=== PATIENT | male | born 1930 | race Caucasian/White ===

== ENCOUNTER 2020-01-23 16:49 | Inpatient (IN) | payer MEDICARE, OTHER ==
[~2020-01-23] VITALS: Ht 167.6 cm; Wt 71.3 kg
[~2020-01-23 16:49] MED LIST: AMLODIPINE10 MG PO; AMLODIPINE5 MG PO; ASPIRIN ADULT L81 MG PO; DONNATA1 OR; ECOTRIN LOW81 MG OR; ENALAPRIL10 MG OR; ENALAPRIL20 MG PO; GLIPIZIDE10 MG OR; METFORMIN500 M1 PO; METFORMIN500 MG OR; PROMETHAZINE25 MG PO; SIMVASTATIN20 MG PO; ZANTAC150 MG OR; ZANTAC25 MG PO
--- NOTE | 2020-01-23 16:50 | NUR ---
PT. WHEELED TO TREATMENT ROOM IMMEDIATELY ON ARRIVAL.
--- NOTE | 2020-01-23 17:16 | NUR ---
ADDED UROJET IN PENIS AND WILL ALLOW ABOUT 10 MIN BEFORE INITIATING GAFFNEY. BLADDER SCANNER SHOWED 551 ML OF FLUID IN BLADDER. PT STATES NOT URINATING FOR 7 HRS AND THE LAST URINATION WAS A VERY SMALL AMOUNT. LOWER ABD FEELS DISTENDED. PT STATES BEING UNCOMFORTABLE AND INTERM PAIN
[2020-01-23 17:41] LABS: URINE BILIRUBIN - DIPSTICK NEGATIVE (NEGATIVE); URINE BLOOD DIPSTICK LARGE (NEGATIVE); URINE COLOR BROWN; URINE GLUCOSE - DIPSTICK 100 mg/dL (NEGATIVE); URINE KETONE 15 mg/dL (NEGATIVE); URINE LEUK ESTERASE NEGATIVE (NEGATIVE); URINE PROTEIN - DIPSTICK 100 mg/dL (NEG-TRACE); URINE SPECIFIC GRAVITY 1.025; URINE UROBILINOGEN - DIPSTICK 0.2 E.U./dL (0.2)
[2020-01-23 17:45] LABS: URINE NITRITE - DIPSTICK POSITIVE (Negative)
[2020-01-23 17:47] LABS: URINE RBC TNTC RBC/hpf (0-5)
[2020-01-23 18:09] LABS: HEMATOCRIT 39.1 % (39.0-50.0); HEMOGLOBIN 13.6 g/dl (14.0-18.0); IMMATURE GRANULOCYTES 0.4 % (0.0-5.0); MEAN CELL VOLUME 93.1 fL CALC (80.0-100.0); MEAN CORPUSCULAR HGB 32.4 pG CALC (26.0-32.0); MEAN CORPUSCULAR HGB CONC 34.8 g/dL CAL (32.0-36.0); NEUT# 3.47 thou/uL (1.82-7.42); RED BLOOD COUNT 4.2 mill/uL (4.70-6.10); RED CELL DISTRI WIDTH 13.2 % (11.5-15.5)
[2020-01-23 18:24] LABS: ALBUMIN 4.4 g/dL (3.2-5.0); ALKALINE PHOSPHATASE 62 u/l (38-126); ANION GAP 15 (6-22 (CALC)); BILIRUBIN, TOTAL 0.7 mg/dL (0.0-1.4); BUN 15 mg/dL (8-23); BUN/CREATININE RATIO 14 (12-20 (CALC)); CARBON DIOXIDE 24 mmol/l (22-30); CHLORIDE 97 mmol/l (95-108); CREATININE 1.1 mg/dL (0.7-1.3); GFR > 60 ML/MIN (>=60 (CALC)); GFR FOR AFR.AMER. > 60 ML/MIN (>=60 (CALC)); POTASSIUM 3.6 mmol/l (3.5-5.1); SGOT/AST 21 u/l (19-48); SODIUM 132 mmol/l (137-146)
--- NOTE | 2020-01-23 18:51 | NUR ---
GAVE REPORT TO TERESE
--- NOTE | 2020-01-23 19:00 | NUR ---
IN ROOM INTRODUCED SELF TO PT. GAFFNEY CATH PATIENT AND DRAINING BLOODY URINE. NO C/O PAIN OR DISCOMFORT OFFERED.
--- NOTE | 2020-01-23 20:30 | NUR ---
IN ROOM TO DISCUSS CLINICAL FINDINGS WITH PT. AND FAMILY, VERBALIZED UNDERSTANDING.
--- NOTE | 2020-01-23 21:13 | NUR ---
IV ABT. STARTED PER MD ORDER.
--- NOTE | 2020-01-23 21:19 | NUR ---
PT. TAKEN TO [facility] VIA STRETCHER, NO C/O.
[2020-01-23 21:25] VITALS: BP 168/83
--- NOTE | 2020-01-23 21:32 | NUR ---
PT. ARRIVED TO THE FLOOR VIA STRETCHER ACCOMPANIED BY ER NURSE LIBBY GUDINO AND . ALL PMH OBTAINED FROM WHO IS THE POA, PT. HAS HX OF DEMENTIA. PT. IS REALLY [place]. PT. AND UPDATED WITH POC.PER ER NURSE THE ER PHYSICIAN NOTIFIED DR. BARRERA OF CONSULT ON PT. B/P ELEVATED BUT PT. IS SETTLING INTO BED WILL REASSESS. PER PT. HAS ALREADY TAKEN ALL HOME MEDICATIONS INCLUDING B/P MED TODAY AT HOME. [address] GAFFNEY CATHETER IN PLACE AND OUTPUT IS BLOODY, CBI HAS NOT BEEN STARTED YET, WILL START SHORTLY. PT. IS A/A/O X3 AND IS VERY [place]. BED ALARM SET FOR SAFETY. PT. DECLINES MORGAN HOSE TO BE APPLIED. CALL LIGHT REVIEWED WITH PT AND VERBALIZES UNDERSTANDING.
--- NOTE | 2020-01-23 21:50 | NUR ---
DR. BOWEN NOTIFIED OF ELEAVTED B/P; NEW ORDERS RECEIVED.
--- NOTE | 2020-01-23 22:10 | NUR ---
CBI STARTED AND SMALL CLOTS NOTED THROUGH TUBING AND URINE TURNED LIGHT PEACH. CBI IS RUNNING WIDE OPEN; WILL CONTINUE TO MONITOR. IVF STARTED PER ORDER. BED ALARM REMAINS ON. CALL LIGHT IS IN REACH.
[2020-01-23 22:37] VITALS: BP 151/69
--- NOTE | 2020-01-23 22:37 | NUR ---
REASSESSED B/P AND NO NEED FOR PRN CLONIDINE AT THIS TIME; WILL CONTINUE TO MONITOR.
--- NOTE | 2020-01-23 23:30 | NUR ---
BAG #3 STARTED. URINE REMAINS PEACH AND CLEAR AND CBI CONTINUES TO RUN WIDE OPEN.
--- NOTE | 2020-01-24 01:00 | NUR ---
[id number]- BAG #5 STARTED, URINE CLEAR LIGHT PEACH WITHOUT CLOTS NOTED. NEW IV STARTED TO RIGHT WRIST X1 ATTEMPT. RAC IS SL AT THIS TIME.
--- NOTE | 2020-01-24 03:50 | NUR ---
CBI REMAINS RUNNING WIDE OPEN WITH CLEAR TO LIGHT PEACH OUTPUT; WILL CONTINUE TO MONITOR. PT. WITH BEDALARM IN PLACE AND HAS SET IT OFF TWICE AND RE-ORIENTED BOTH TIMES THAT HE HAS GOT TO LEAV CATHTER IN PLACE TO IRRIGATE BLADDER. PT. EASILY RE-ORIENTED.
[2020-01-24 05:15] VITALS: BP 148/71
--- NOTE | 2020-01-24 06:38 | NUR ---
PT. STANDING UP AND DOWN FROM RECLINER AND REPORTING PRESSURE/PAIN TO PELVIC ARAE; ORDERES RECEIVED FOR BENTYL AND GIVEN AT THIS TIME ALONG WITH PRN TYLENOL. WILL REASSESS. CBI REMAINS RUNNING WIDE OPEN; DRAINING CLEAR LIGHT PEACH DRAINAGE AT GRAVITY LEVEL.
--- NOTE | 2020-01-24 07:00 | NUR ---
REPORT RECEIVED FROM LIBBY DYER. PT SITTING UP IN RECLINER; VERY RESTLESS AND STANDING DUE TO PAIN AND SPASMS OF BLADDER. PT GRABBING GENITALS AT GAFFNEY INSERTION SITE, BUT DOES NOT ATTEMPT TO REMOVE. STANDING AND SITTING FREQUENTLY TO ATTEMPT TO ALLEIVATE DISCOMFORT. PT IS ALERT AND ORIENTED WITH FORGETFULLNESS. VERY HARD OF HEARING. RESPIRATIONS EVEN AND UNLABORED ON ROOM AIR. CONTINUOUS BLADDER IRRIGATION ON 11TH BAG OF NORMAL SALINE; URINE IS CLEAR PEACH IN TUBING. PT INCONTINENT OF LOOSE BOWEL MOVEMENTS WITH ODOR; HYGIENE PROVIDED AND STOOL SAMPLE SENT TO LAB. IV FLUIDS INFUSING WITHOUT DIFFICULTY; IV SITE APPEARS HEALTHY. SAFETY MEASURES IN PLACE. CALL LIGHT WITHIN REACH.
[2020-01-24 08:00] VITALS: BP 108/47
[2020-01-24 10:58] VITALS: BP 100/54
--- NOTE | 2020-01-24 12:05 | NUR ---
DR. GERMAN AT BEDSIDE. CBI DISCONTINUED FOR POSSIBLE TRANSFER TO [facility]. ALSO AT BEDSIDE. AFTER CBI STOPPED URINE BECAME RED WITH CLOTS. CBI RESTARTED. PLAN OF CARE DISCUSSED BY DR. GERMAN TO KEEP PT HERE AND AGAIN CONSULT DR. BARRERA.
--- NOTE | 2020-01-24 15:15 | NUR ---
CALLED CONSULTATION ON DR. BARRERA ABOUT THIS PATIENT. SPOKE TO NAVJOT AT HIS OFFICE AT [phone]. STATED DOCTOR IS AWARE OF CONSULTATION AND THAT IF HE NEEDS THE NURSE HE WILL CALL BACK AT [phone].
[2020-01-24 15:35] VITALS: BP 103/54
--- NOTE | 2020-01-24 16:22 | NUR ---
CBI CONTINUES; CURRENTLY INFUSING BAG #19; COLOR IS CLEAR PEACH AND WHEN SLOWED TURNS CRANBERRY WITH CLOTS. PT TOLERATING WELL. SITTING UP IN BEDSIDE CHAIR. AT BEDSIDE. DR. BARRERA NOTIFIED OF REPEAT CONSULT. NO REQUESTS OR CONCERNS AT THIS TIME. CALL LIGHT WITHIN REACH.
--- NOTE | 2020-01-24 18:56 | NUR ---
REQUESTED TO GO BACK TO BED; ASSISTED BY ONE PERSON; NOW RESTING ON RIGHT SIDE. CBI CURRENTLY GOING WIDE OPEN, HOWEVER, INFUSION HAS SLOWED. PT REPOSITIONED AND TUBING MANIPULATED WITH NO INCREASE IN INFUSION. BOTTLE OF NORMAL SALINE ORDERED FOR PRN IRRIGATION. WILL PASS ON TO [facility] FISHING VESSEL. URINE IS CLEAR IN TUBING AND FELIX RED IN BAG. BENTYL GIVEN AT THIS TIME.
--- NOTE | 2020-01-24 19:10 | NUR ---
MD AT BEDSIDE DISCUSSING PLAN OF CARE.
[2020-01-24 19:30] VITALS: BP 110/64
--- NOTE | 2020-01-24 19:32 | NUR ---
AT BEDSIDE FOR GAFFNEY IRRIGATION. MULTIPLE CLOTS REMOVED AND CBI AGAIN FLUSHING CRANBERRY URINE INTO GAFFNEY. PT NOW RESTING ON RIGHT SIDE.
--- NOTE | 2020-01-24 20:02 | NUR ---
PT RESTING IN BED, ALERT AND ORIENTED. RESPIRATIONS EVEN AND UNLABORED ON RA, LUNGS CLEAR. PEDAL PULSES STRONG. PT DENIES ANY PAIN OR DISCOMFORT AT THIS TIME. CBI IN PLACE, DRAINING RED/CLEAR URINE. BAG EMPTIED AT THIS TIME 3450ML OUT. SAFETY PRECAUTIONS IN PLACE. WILL CONTINUE TO MONITOR.
--- NOTE | 2020-01-25 00:39 | NUR ---
PT RESTING IN BED, RESPIRATIONS EVEN AND UNLABORED ON RA. NO S/S OF DISTESS AT THIS TIME. SAFETY PRECAUTIONS IN PLACE. WILL CONTINUE TO MONITOR.
--- NOTE | 2020-01-25 04:10 | NUR ---
PT RESTING IN BED. NO S/S OF DISTRESS AT THIS TIME. SAFETY PRECAUTIONS IN PLACE. WILL CONTINUE TO MONITOR.
[2020-01-25 04:48] LABS: HEMATOCRIT 40.4 % (39.0-50.0); HEMOGLOBIN 13.6 g/dl (14.0-18.0); IMMATURE GRANULOCYTES 0.4 % (0.0-5.0); MEAN CELL VOLUME 95.7 fL CALC (80.0-100.0); MEAN CORPUSCULAR HGB 32.2 pG CALC (26.0-32.0); MEAN CORPUSCULAR HGB CONC 33.7 g/dL CAL (32.0-36.0); NEUT# 2.57 thou/uL (1.82-7.42); RED BLOOD COUNT 4.22 mill/uL (4.70-6.10); RED CELL DISTRI WIDTH 13.5 % (11.5-15.5)
[2020-01-25 05:15] LABS: ALKALINE PHOSPHATASE 56 u/l (38-126); ANION GAP 10 (6-22 (CALC)); BUN 13 mg/dL (8-23); BUN/CREATININE RATIO 14 (12-20 (CALC)); CARBON DIOXIDE 23 mmol/l (22-30); CHLORIDE 106 mmol/l (95-108); GFR > 60 ML/MIN (>=60 (CALC)); GFR FOR AFR.AMER. > 60 ML/MIN (>=60 (CALC)); POTASSIUM 3.5 mmol/l (3.5-5.1); SGOT/AST 25 u/l (19-48); SODIUM 135 mmol/l (137-146); TOTAL PROTEIN 5.8 g/dL (6.3-8.2)
[2020-01-25 05:24] LABS: ALBUMIN 3.3 g/dL (3.2-5.0); BILIRUBIN, TOTAL 0.4 mg/dL (0.0-1.4)
--- NOTE | 2020-01-25 07:00 | NUR ---
REPORT RECEIVED FROM LIBBY RMOANO. PT RESTING IN BED ON RIGHT SIDE WITH EYES CLOSED; AWAKENS TO TACTILE STIMULI. HARD OF HEARING; HEARING AIDS PUT IN AND PT IS ALERT AND ORIENTED. C/O SOME PENILE PAIN AT GAFFNEY INSERTION SITE; RESPIRATIONS EVEN AND UNLABORED ON ROOM AIR. BAG #35 OF CBI DRAINING TO GRAVITY AND CLEAR LIGHT RED URINE IN BAG. GOOD URINARY OUTPUT. IV FLUIDS INFUSING; IV SITE APPEARS HEALTHY. LUNGS ARE DIMINISHED. SAFETY MEASURES IN PLACE INCLUDING BED ALARM. CALL LIGHT WITHIN REACH.
--- NOTE | 2020-01-25 07:40 | NUR ---
PT ASSISTED INTO BEDSIDE CHAIR FOR BREAKFAST; SON AT BEDSIDE. BENTYL GIVEN WITH AM MEDS.
[2020-01-25 07:46] VITALS: BP 120/63
--- NOTE | 2020-01-25 13:02 | NUR ---
REPOSITIONED BACK INTO BED PER REQUEST. BAG #39 NOW INFUSING. PT REPORTS FEELING LIKE HE HAS TO URINATE, BUT HAS NO DISCOMFORT AT THIS TIME.
[2020-01-25 15:26] VITALS: BP 126/66
--- NOTE | 2020-01-25 17:00 | NUR ---
BACK UP TO CHAIR FOR DINNER; PT C/O OF FEELING OF NEED TO VOID; FORGETUL AND NEEDS REMINDING OF NORMAL SENSATIONS WITH PROCEDURE. PT REASSURED. NO PAIN.
[2020-01-25 18:35] VITALS: BP 124/61
--- NOTE | 2020-01-25 18:42 | NUR ---
BAG #44 OF CBI IRRIGATING AT THIS TIME. CLEAR PEACH IN GAFFNEY TUBING.
--- NOTE | 2020-01-25 20:03 | NUR ---
PT SITTING IN RECLINER. ASSESSMENT COMPLETED AT THIS TIME. CBI RUNNING AT MODERATE RATE TO CLEAR DARK PINK 300CC URINE OUTPUT AT THIS TIME. LOC TO SELF AND CIRCUMSTANCE AT THIS TIME. CALL LIGHT IN HAND. NO S/O DISTRESS NOTED.
--- NOTE | 2020-01-25 20:11 | NUR ---
PT ASSISTED BACK TO BED W/DESIGNER ARCHITECT AND DOBIE WORKER AT SIDE. PT HAD TROUBLE UNDERSTANDING DIRECTIONS, BUT OTHERWISE TOLERATED AMBULATING WELL.
--- NOTE | 2020-01-25 23:49 | NUR ---
PT C/O FEELING LIKE HIS BLADDER IS FULL STATING "I WILL HAVE TO TAKE THIS OUT OF MY BLADDER IF IT DOESN'T STOP FEELING FULL LIKE THIS." PT MEDICATED FOR BLADDER SPASMS AND EDUCATED ON MEDICATION. CBI RUNNING MODERATELY W/CLEAR PINK OUTPUT.
--- NOTE | 2020-01-26 03:54 | NUR ---
CBI RUNNING MODERATELY CLEAR DARK PINK WITH GOOD URINE OUTPUT. PT SLEEPING, BUT AWAKES I ENTER THE ROOM. NO S/O DISTRESS NOTED. CALL LIGHT W/IN REACH.
[2020-01-26 04:00] VITALS: BP 136/69
[2020-01-26 07:47] LABS: HEMATOCRIT 39.5 % (39.0-50.0); HEMOGLOBIN 13.5 g/dl (14.0-18.0); MEAN CELL VOLUME 95.2 fL CALC (80.0-100.0); MEAN CORPUSCULAR HGB 32.5 pG CALC (26.0-32.0); MEAN CORPUSCULAR HGB CONC 34.2 g/dL CAL (32.0-36.0); RED BLOOD COUNT 4.15 mill/uL (4.70-6.10); RED CELL DISTRI WIDTH 13.2 % (11.5-15.5)
[2020-01-26 07:51] VITALS: BP 132/59
--- NOTE | 2020-01-26 07:54 | NUR ---
PT IS SITTING IN RECLINER. ASSESSMENT DONE. PT IS A&O X2. LUNGS SOUND DIMINISHED. IVF INFUSING WELL. CBI INFUSING WELL AND THREE WAY GAFFNEY IN PLACE WITH FELIX RED URINE. NO BLOOD CLOTS NOTED. PT STATED HE FEEL LIKE PRESSURE FROM GAFFNEY AT TIMES. PT DENIES PAIN MEDICATION AT THIS TIME.MEDICATED PT WITH BENTYL. PO FLUIDS PROVIDED. PT DENIES ANY OTHER NEEDS AT THIS TIME. CALL LIGHT IN REACH.
[2020-01-26 08:08] LABS: ANION GAP 11 (6-22 (CALC)); BUN 10 mg/dL (8-23); BUN/CREATININE RATIO 12 (12-20 (CALC)); CARBON DIOXIDE 22 mmol/l (22-30); CHLORIDE 105 mmol/l (95-108); CREATININE 0.8 mg/dL (0.7-1.3); GFR > 60 ML/MIN (>=60 (CALC)); GFR FOR AFR.AMER. > 60 ML/MIN (>=60 (CALC)); POTASSIUM 3.2 mmol/l (3.5-5.1); SODIUM 134 mmol/l (137-146)
--- NOTE | 2020-01-26 12:00 | NUR ---
PT IS SITTING IN RECLINER WITH IN ROOM. CBI INFUSING WELL. GAFFNEY IS PATETN WITH PINK URINE NOTED AND NO BLOOD CLOTS NOTED. PT DENIES ANY NEEDS AT THIS TIME. CALL LIGHT IN REACH.
[2020-01-26 15:26] VITALS: BP 118/66
--- NOTE | 2020-01-26 15:50 | NUR ---
PT TRYING TO PULL GAFFNEY OUT. PT STATED HE DOES NOT WANT IT THERE. PT FEELS LIKE GAFFNEY IS PULLING. EXPLAIN TO PT WHY HE NEEDS IT AND PT VERBALIZED UNDERSTANDING. BED ALARM IN PLACE. PT DENIES ANY OTHER NEEDS AT THIS TIME. CALL LIGHT IN REACH.
--- NOTE | 2020-01-26 18:09 | NUR ---
TWO SMALL BLOOD CLOTS NOTED IN GAFFNEY URINE IS RED. CBI INFUSING. IN ROOM. CALL LIGHT IN REACH.
[2020-01-26 18:45] VITALS: BP 125/59
--- NOTE | 2020-01-26 19:38 | NUR ---
PT MEDICATED ORDERS PROVIDE AND FOR BLADDER DISCOMFORT. PT ASSESSMENT COMPLETED AT THIS TIME. ANTIBIOTIC THERAPY RUNNING TO PERIPHERAL IN RFA. PT SITTING IN RECLINER W/CALL LIGHT WITHIN REACH.
--- NOTE | 2020-01-26 20:00 | NUR ---
PT CALLED TO REPORT HIS "WATER" WASN'T RUNNING. CBI TUBING WAS FOUND TO BE UP IN THE CHAIR IN HIS HAND AND KINKED AND THE LEG STRAP SITE NOT RUNNING. TUBING WAS PLACED DOWN, UNKINKED AND RUNNING W/OUT ISSUE. NO VISIBLE CLOTS AT THIS TIME. I INSTRUCTED PT TO NOT PROCUREMENT ACCOUNTANT THE TUBING AND EXPLAINED TO HIM WHY.
--- NOTE | 2020-01-26 23:06 | NUR ---
CBI RUNNING OPEN, DRAINING CLEAR PINK. PT REMINDED OF STRAIGHTENING ARM SO THAT IVF WILL RUN. PT ASSISTED POSITIONING WITH BLANKET TO ASSISTE HIM WITH THIS.
--- NOTE | 2020-01-26 23:31 | NUR ---
SONOROUS SOUNDS/PT SLEEPING, NO S/O DISTRESS. IVF RUNNING TO PERIPHERAL SITE TO RFA.
--- NOTE | 2020-01-27 00:54 | NUR ---
PT WOKE UP CONFUSED STATING "I HAVE TO GET UP TO PEE." WE ATTEMPTED TO EXPLAIN TO THE PT THAT HE HAS A CATHETER IN SHOWING HIM HIS DRAINAGE BAG. PT WAS PULLING ON THE CATHETER AND ATTEMPT. PT MEDICATED FOR BLADDER SPASMS, TWO SMALL CLOTS VISUALIZED IN CBI TUBING. PT SETTLED IN THE BED W/BED ALARM ON.
--- NOTE | 2020-01-27 02:06 | NUR ---
PT SLEEPING, AWOKE TO MY ENTERING THE ROOM FOR CBI. NO S/O DISTRESS NOTED AT THIS TIME. BED ALARM IS ON AND CALL LIGHT W/IN REACH.
--- NOTE | 2020-01-27 03:32 | NUR ---
PT SLEEPING, CBI RUNNING CLEAR LIGHT PINK. GOOD URINE OUTPUT.
--- NOTE | 2020-01-27 04:25 | NUR ---
PT AWAKE STATING, "I'M GOING TO HAVE TO PEE HERE SOON." PT REORIENTED TO CIRCUMSTANCES. PT IS EXTREMELY HARD OF HEARING, I ASK PT TO PUT IN HEARING AIDE TO COMMUNICATE, BUT HE REFUSES WHEN HE IS IN THE BED. I SHOWED PT THE CATHETER AND DRAINAGE BAG TO REORIENT, HE JUST STATES, "I KNOW I HAVE THAT, BUT I AM STILL GOING TO HAVE TO PEE." PT STAYING IN BED AT THIS TIME. BED ALARM ON.
[2020-01-27 05:11] LABS: HEMATOCRIT 38.6 % (39.0-50.0); HEMOGLOBIN 13.2 g/dl (14.0-18.0); IMMATURE GRANULOCYTES 0.2 % (0.0-5.0); MEAN CELL VOLUME 94.1 fL CALC (80.0-100.0); MEAN CORPUSCULAR HGB 32.2 pG CALC (26.0-32.0); MEAN CORPUSCULAR HGB CONC 34.2 g/dL CAL (32.0-36.0); NEUT# 2.75 thou/uL (1.82-7.42); RED BLOOD COUNT 4.1 mill/uL (4.70-6.10); RED CELL DISTRI WIDTH 12.9 % (11.5-15.5)
[2020-01-27 05:25] LABS: ANION GAP 9 (6-22 (CALC)); BUN 8 mg/dL (8-23); BUN/CREATININE RATIO 10 (12-20 (CALC)); CARBON DIOXIDE 26 mmol/l (22-30); CHLORIDE 102 mmol/l (95-108); CREATININE 0.8 mg/dL (0.7-1.3); GFR > 60 ML/MIN (>=60 (CALC)); GFR FOR AFR.AMER. > 60 ML/MIN (>=60 (CALC)); POTASSIUM 3.2 mmol/l (3.5-5.1); SODIUM 134 mmol/l (137-146)
--- NOTE | 2020-01-27 05:26 | NUR ---
PT IS BACK TO SLEEP AT THIS TIME. NO S/O DISTRESS. CBI PINK CLEAR URINE OUTPUT.
--- NOTE | 2020-01-27 06:00 | NUR ---
PT CONFUSED AND WANTING OUT OF BED. CBI WIDE OPEN DRAINING PINK, WHEN PT MOVES AROUND IT GOES LIGHT RED. APPEARS PATENT AND DRAINING AT THIS TIME. BED ALARM IS ON.
--- NOTE | 2020-01-27 07:00 | NUR ---
REPORT RECEIVED FROM LIBBY VILLALTA. PT SITTING UP IN CHAIR; ALERT WITH FORGETFULNESS. C/O DISCOMFORT RELATED TO GAFFNEY CATHETER. RESPIRATIONS EVEN AND UNLABORED ON ROOM AIR. BAG #76 OF CBI IRRIGATING; LIGHT CRANBERRY COLOR IN GAFFNEY TUBING. SAFETY MEASURES IN PLACE INCUDING ALARM. FALL RISK. CALL LIGHT WITHIN REACH.
[2020-01-27 08:00] VITALS: BP 117/60
--- NOTE | 2020-01-27 08:00 | NUR ---
BEE GIVEN WITH AM MEDS.
--- NOTE | 2020-01-27 09:15 | NUR ---
SON AT BEDSIDE. PT ASSISTED INTO BED PER REQUEST. NOW RESTING ON RIGHT SIDE.
--- NOTE | 2020-01-27 10:30 | NUR ---
DR. ALBERT AT BEDSIDE.
--- NOTE | 2020-01-27 12:42 | NUR ---
PT RESTLESS WITH SENSATION OF NEED TO URINATE; FREQUENTLY REMINEDED OF INDICATION OF CBI. TOOK A NAP AND NOW BACK IN CHAIR. DAUGHTER AT BEDSIDE. PT REPORTS POOR APETITE. IV SITE TO RW LEAKING WITH FLUSH AND D/C'D.
[2020-01-27 15:45] VITALS: BP 134/77
--- NOTE | 2020-01-27 15:53 | NUR ---
IV SITE TO RAC D/C'D AND NEW SITE STARTED TO LFA; IV FLUIDS INFUSING WITHOUT DIFFICULTY AT 100 ML/HR PER ORDER. BENTYL GIVEN FOR DISCOMFORT. PT SITTING UP IN CHAIR WITH AT BEDSIDE.
--- NOTE | 2020-01-27 16:22 | NUR ---
ASSISTED TO BSC FOR SMALL LOOSE DARK BROWN BOWEL MOVEMENT. PT FIGETY WITH TUBING. VERBAL INSTRUCTION GIVEN AND FREQUENT REMINDERS.
--- NOTE | 2020-01-27 18:01 | NUR ---
NEW ORDERS PLACED BY DR BARRERA FOR CONSENT FOR CYSTO. PT WILL BE NPO AFTER MIDNIGHT. RADIOLOGY AT BEDSIDE FOR CHEST XRAY.
[2020-01-27 18:23] VITALS: BP 135/65
--- NOTE | 2020-01-27 19:00 | NUR ---
RECEIVED REPORT FROM NURSE GEORGE PATIENT IN BED, WITH ONGOING CBI, PATENT URINE OUTPUT CRANBERRY IN COLOR, CALL LIGHT AT REACH.
--- NOTE | 2020-01-27 20:00 | NUR ---
PATIENT ALERT ORIENTED AND IS FORGETFULL, WITH ONGOING IV IF NS ON LFA G 20 @ 100CC/HR INFUSING WELL, ONGOING CBI CONNECTED TO URINE BAG DRAINING CRANBERRY COLORED URINE, LBM 01/26, BED ALARM IN PLACE.
--- NOTE | 2020-01-27 22:33 | NUR ---
PATIENT ASSISTED TO RECLINER STATED THAT FEELING THE NEED TO URINATE, ONGOING CBI, BLADDER NOT DISTENDED, BDI PATENT. PATIENT HOOKED TO PORTABLE ALARM, HAS SET OFF MULTIPLE TIMES, INSTRUCTED TO ASK FOR ASSISTANCE DURING TRANSFER.
--- NOTE | 2020-01-28 | NUR ---
PATIENT RESTING IN BED, EYES CLOSED, ONGOING CBI, DRAINING CRANBERRY COLORED URINE, NO DISCOMFORTS NOTED AT THIS TIME, BED ALARM IN PLACE.
[2020-01-28 03:40] VITALS: BP 137/70
[2020-01-28 04:37] LABS: HEMATOCRIT 39.9 % (39.0-50.0); HEMOGLOBIN 13.7 g/dl (14.0-18.0); MEAN CELL VOLUME 93.7 fL CALC (80.0-100.0); MEAN CORPUSCULAR HGB 32.2 pG CALC (26.0-32.0); MEAN CORPUSCULAR HGB CONC 34.3 g/dL CAL (32.0-36.0); RED BLOOD COUNT 4.26 mill/uL (4.70-6.10)
[2020-01-28 05:02] LABS: ALBUMIN 3.6 g/dL (3.2-5.0); ALKALINE PHOSPHATASE 61 u/l (38-126); ANION GAP 13 (6-22 (CALC)); BILIRUBIN, TOTAL 0.5 mg/dL (0.0-1.4); BUN 8 mg/dL (8-23); BUN/CREATININE RATIO 10 (12-20 (CALC)); CARBON DIOXIDE 24 mmol/l (22-30); CHLORIDE 101 mmol/l (95-108); CREATININE 0.8 mg/dL (0.7-1.3); GFR > 60 ML/MIN (>=60 (CALC)); GFR FOR AFR.AMER. > 60 ML/MIN (>=60 (CALC)); POTASSIUM 3.2 mmol/l (3.5-5.1); SGOT/AST 25 u/l (19-48); SODIUM 134 mmol/l (137-146); TOTAL PROTEIN 6.1 g/dL (6.3-8.2)
--- NOTE | 2020-01-28 05:10 | NUR ---
PATIENT RESTING IN BED WITH EYES CLOSED, BREATHING EVEN AND UNLABORED, ON CONTINUOUS BLADDER IRRIGATION, DRAINING CRANBERRY COLORED URINE, REMAINS ON BED ALARM.
--- NOTE | 2020-01-28 06:17 | NUR ---
NOTIFIED DR. ALBERT ABOUT PATIENTS EKG RESULT AND ORDERED TELEMETRY.
--- NOTE | 2020-01-28 06:54 | NUR ---
PATIENT HOOKED TO TELEMETRY AT THIS TIME.
--- NOTE | 2020-01-28 07:15 | NUR ---
RECEIVED ORDERS FROM DR. ALBERT TO TRANSFER PATIENT TO [facility] AND THAT HIS PRIMARY IS [facility].
--- NOTE | 2020-01-28 07:25 | NUR ---
SPOKE WITH SYLVIA,ANRP ABOUT ORDERS FROM FOR TRANSFER TO [facility]. ORDER HELD AT THIS TIME PER ANRP AND NEW EKG ORDERED.WILL CONTINUE TO MONITOR
--- NOTE | 2020-01-28 07:29 | NUR ---
RECIEVED REPORT FROM FROM LIBBY RILEY . PT RESTING IN SEMI FOWLERS POSITION. RESPIRATIONS ARE EVEN AND UNLABORED. CBI RUNNING WITH EASE, MODERATE WITH PEACH URINE EMPTIED AT THIS TIME. NO SIGNS OF ANY PAIN OR DISCOMFORTS AT THIS TIME. ALL SAFTEY PRECAUTIONS IN PLACE WITH CALL LIGHT IN REACH AND BED ALARM ACTIVATED. WILL CONTINUE TO MONITOR
--- NOTE | 2020-01-28 08:50 | NUR ---
DEVON,ANESTHESIA AT BEDSIDE
--- NOTE | 2020-01-28 09:00 | NUR ---
RT AT BEDSIDE OBTAINING EKG.
[2020-01-28 09:05] VITALS: BP 104/53
--- NOTE | 2020-01-28 09:05 | NUR ---
ASSESSMENT AND VITALS COMPLETED AT THIS TIME.SON AT BEDSIDE AT THIS TIME.PT IS A/O X3 BUT DOES NEED REORIENTING AT TIMES. BP 104/53, HR 71, O2 95% ON ROOM AIR. RESPIRATIONS ARE EVEN AND UNLABORED. LUNG SOUNDS ARE CLEAR. HEART RHYTHM IS NORMAL. BOWEL SOUNDS ARE ACTIVE IN ALL QUADRANTS WITH NO TENDERNESS. LAST REPORTED BM 01/27/20. RADIAL AND PEDAL PULSES ARE STRONG WITH NORMAL CAPILLARY REFILL. NO EDEMA OR ANY SKIN BREAK DOWN PRESENT AT THIS TIME. IV RUNNING AT 100 ML ORDERED, SITE APPEARS HEALTHY AND PATENT. CBI RUNNING WITH EASE, URINE A CRANBERRY COLOR. PT DENIES ANY PAIN OR DISCOMFORTS AT THIS TIME . ALL SAFTEY PRECAUTIONS REMAIN IN PLACE WITH CALL LIGHT IN REACH. WILL CONTIUE TO MONITOR.
--- NOTE | 2020-01-28 09:25 | NUR ---
AT BEDSIDE DISCUSSING POC INCLUDING PLANS TO TRANSFER TO [facility].
[2020-01-28 11:13] VITALS: BP 144/65
--- NOTE | 2020-01-28 11:58 | NUR ---
PT SLEEPING IN SEMI FOWLERS POSITION WITH AT BEDSIDE. RESPIRATIONS ARE EVEN AND UNLABORED. NO SIGNS OF ANY PAIN OR DISCOMFORTS.CBI RUNNING WITH EASE 3125 PEACH COLORED URINE EMPTIED AT THIS TIME. ALL SAFETY PRECAUTIONS IN PLACE WITH CALL LIGHT IN REACH. WILL CONTINUE TO MONITOR
--- NOTE | 2020-01-28 12:39 | NUR ---
PT COMPLAINING OF HAVING TO URINATE, RE-EDUCATED PT ON CATHATER. OFFERED BENTYL TO ASSIST WITH BLADDER SPASMS, PT ACCEPTED. BENTYL ADMINISTERED AT THIS TIME.
--- NOTE | 2020-01-28 13:13 | NUR ---
PT BEING TRANSPORT BY [facility] TO [facility] IN STABLE CONDITION VIA STRETCHER. ALL BELONGINGS LEFT WITH .
--- NOTE | 2020-01-28 13:35 | NUR ---
REPORT GIVEN TO LIBBY JIMENEZ AT [facility].
== END 2020-01-28 13:20 | DRG 726 ==
LOC: ED 16:49 → ED-I 20:25 → ED 20:42 → ED-I 20:43 → MS2 20:43
PROVIDERS: Emergency Medicine; Nurse Practitioner Family; ADMIT Internal Medicine; ATTEND Internal Medicine
PROC: 0T9B70Z Drainage of Bladder with Drainage Device, Via Natural or Artificial Opening (ICD-10-PCS; principal; 2020-01-23)
DX: N40.1 Benign prostatic hyperplasia with lower urinary tract symptoms (principal); N39.0 Urinary tract infection, site not specified; R33.8 Other retention of urine; R31.0 Gross hematuria; E87.6 Hypokalemia; I49.1 Atrial premature depolarization; E11.9 Type 2 diabetes mellitus without complications; I10 Essential (primary) hypertension; F03.90 Unspecified dementia, unspecified severity, without behavioral disturbance, psychotic disturbance, mood disturbance, and anxiety; E03.9 Hypothyroidism, unspecified; E78.5 Hyperlipidemia, unspecified; K21.9 Gastro-esophageal reflux disease without esophagitis; Z91.81 History of falling; Z20.828 Contact with and (suspected) exposure to other viral communicable diseases
CPT/HCPCS: G0378; Q9967

== ENCOUNTER 2020-02-11 17:07 | Observation (INO) | payer MEDICARE, OTHER ==
[~2020-02-11] VITALS: Ht 167.6 cm; Wt 63.2 kg
--- NOTE | 2020-02-11 17:07 | NUR ---
PT TO ROOM VIA WC IN NO DISTRESS WITH AT BEDSIDE
[2020-02-11 18:00] LABS: HEMATOCRIT 38.1 % (39.0-50.0); HEMOGLOBIN 12.9 g/dl (14.0-18.0); IMMATURE GRANULOCYTES 0.7 % (0.0-5.0); MEAN CELL VOLUME 93.4 fL CALC (80.0-100.0); MEAN CORPUSCULAR HGB 31.6 pG CALC (26.0-32.0); MEAN CORPUSCULAR HGB CONC 33.9 g/dL CAL (32.0-36.0); NEUT# 4.95 thou/uL (1.82-7.42); RED BLOOD COUNT 4.08 mill/uL (4.70-6.10); RED CELL DISTRI WIDTH 12.7 % (11.5-15.5)
--- NOTE | 2020-02-11 18:00 | NUR ---
PT ALERT WITH SOME CONFUSION ADN [place]. PT VOIDED 100CC DARK VALERIE URINE. DENEIS PAIN. NO SOB OR CP NOTED.
[2020-02-11 18:08] LABS: URINE BILIRUBIN - DIPSTICK NEGATIVE (NEGATIVE); URINE BLOOD DIPSTICK LARGE (NEGATIVE); URINE COLOR YELLOW; URINE GLUCOSE - DIPSTICK NEGATIVE (NEGATIVE); URINE KETONE NEGATIVE (NEGATIVE); URINE NITRITE - DIPSTICK NEGATIVE (Negative); URINE PROTEIN - DIPSTICK 30 mg/dL (NEG-TRACE); URINE UROBILINOGEN - DIPSTICK 0.2 E.U./dL (0.2)
[2020-02-11 18:09] LABS: URINE LEUK ESTERASE MODERATE (NEGATIVE)
[2020-02-11 18:22] LABS: ALBUMIN 4.3 g/dL (3.2-5.0); ALKALINE PHOSPHATASE 88 u/l (38-126); BILIRUBIN, TOTAL 0.5 mg/dL (0.0-1.4); BUN 24 mg/dL (8-23); BUN/CREATININE RATIO 22 (12-20 (CALC)); CARBON DIOXIDE 22 mmol/l (22-30); CHLORIDE 99 mmol/l (95-108); CREATININE 1.1 mg/dL (0.7-1.3); GFR > 60 ML/MIN (>=60 (CALC)); GFR FOR AFR.AMER. > 60 ML/MIN (>=60 (CALC)); SODIUM 130 mmol/l (137-146)
[2020-02-11 18:23] LABS: ANION GAP 14 (6-22 (CALC)); POTASSIUM 5.1 mmol/l (3.5-5.1); SGOT/AST 54 u/l (19-48); TOTAL PROTEIN 7.5 g/dL (6.3-8.2)
[2020-02-11 18:34] LABS: MYOGLOBIN 37 ng/mL (0 - 121)
--- NOTE | 2020-02-11 19:06 | NUR ---
BLADDER SCAN REVEALED 216CC. PT TOLERATED WELL. INTRODUCED LICENSING SPECIALIST NURSE TO PT AND . UPDATED ON POC. UNABLE TO RELATED MEDS STATES NO CHANGE SINCE HERE LAST. STATES HE IS TAKING AND ABT SINCE PROCEDURE
--- NOTE | 2020-02-11 20:00 | NUR ---
PT RESTING. AT BEDSIDE. PT VOIDING FREQUENTLY. SMALL AMTS.
[2020-02-11 20:02] LABS: ACT PARTIAL THROMBO TIME 25.9 SECONDS (20.0-32.5); INTERNATIONAL NORMALIZED RATIO 1.1 RATIO (0.7-1.3); PROTHROMBIN TIME 11.3 SECONDS (9.0-12.5)
--- NOTE | 2020-02-11 20:35 | NUR ---
ATTEMPTED TO CALL REPORT. NURSE WILL CALL BACK.
--- NOTE | 2020-02-11 20:50 | NUR ---
OSVALDO NOT AVAILABLE TO TAKE REPORT...ON PHONE WITH
--- NOTE | 2020-02-11 21:17 | NUR ---
REPORT TO OSVALDO/NURSE MED SURG.
--- NOTE | 2020-02-11 21:22 | NUR ---
TO FLOOR VIA STRETCHER. PORTABLE POCKET MONITOR. MASKED FOR COVID. PT AMBULATORY TO BED UPON ARRIVAL. NAD.
[2020-02-11 21:30] VITALS: BP 147/75
--- NOTE | 2020-02-11 21:30 | NUR ---
RECEIVED REPORT FROM NURSE MIGUEL, PATIENT TRASNPORTED VIS BED, ORIENTED TO ROOM AND CALL LIGHT SYSTEM, PATIENT IN NEGATIVE PRESSURE ROOM, TELE IN PLACE, CALL LIGHT AT REACH.
--- NOTE | 2020-02-11 23:00 | NUR ---
ADMISSION ASSESSMENT COMPLETED, PATIENT ALERT ONLY TO NAME AND TIME, USES URINAL TO VOID, STAND BY ASSIST WITH TRANSFER, WITH SALINE LOCK ON RT WRIST NS PATENT FLUSHES WELL, REMAINS ON TELE, CALL LIGHT AT REACH.
[2020-02-11 23:50] VITALS: BP 127/78
--- NOTE | 2020-02-12 01:13 | NUR ---
PATIENT RESTING IN BED EYES CLOSED, EVEN UNLABORED BREATHING CALL LIGHT AT REACH. MONITORING IN PLACE.
[2020-02-12 04:05] VITALS: BP 118/56
--- NOTE | 2020-02-12 05:08 | NUR ---
PATIENT RESTING IN BED BREATHING EVEN AND UNLABORED, CALL LIGHT AT REACH.
[2020-02-12 05:49] LABS: HEMOGLOBIN 11.9 g/dl (14.0-18.0); IMMATURE GRANULOCYTES 0.5 % (0.0-5.0); MEAN CELL VOLUME 94.7 fL CALC (80.0-100.0); MEAN CORPUSCULAR HGB 31.3 pG CALC (26.0-32.0); MEAN CORPUSCULAR HGB CONC 33.1 g/dL CAL (32.0-36.0); NEUT# 5.17 thou/uL (1.82-7.42); RED BLOOD COUNT 3.8 mill/uL (4.70-6.10); RED CELL DISTRI WIDTH 12.8 % (11.5-15.5)
[2020-02-12 06:25] LABS: ALBUMIN 3.8 g/dL (3.2-5.0); ALKALINE PHOSPHATASE 79 u/l (38-126); ANION GAP 13 (6-22 (CALC)); BILIRUBIN, TOTAL 0.5 mg/dL (0.0-1.4); BUN 20 mg/dL (8-23); BUN/CREATININE RATIO 21 (12-20 (CALC)); C-REACTIVE PROTEIN 0.9 mg/dL (0-0.9); CARBON DIOXIDE 19 mmol/l (22-30); CHLORIDE 105 mmol/l (95-108); GFR > 60 ML/MIN (>=60 (CALC)); GFR FOR AFR.AMER. > 60 ML/MIN (>=60 (CALC)); POTASSIUM 5.1 mmol/l (3.5-5.1); SGOT/AST 35 u/l (19-48); SODIUM 132 mmol/l (137-146); TOTAL PROTEIN 6.4 g/dL (6.3-8.2)
--- NOTE | 2020-02-12 07:34 | NUR ---
PATIENT TRANSFERRED TO ICU MED SURG OVERFLOW,TANSPORTED PATIENT VIA WHEELCHAIR AND REPORT GIVEN TO NURSE NAPIER TOGETHER WITH BELONGINGS AND BILAT HEARING AIDS.
--- NOTE | 2020-02-12 08:46 | NUR ---
PT ARRIVES TO ICU-8 VIA WHEELCHAIR FROM MED/SURG, SEEN AWAKE AND ALERT, ORIENTED TO SELF AND PLACE. PT WITH DIMINISHED LUNG SOUNDS, RA. PT IS VERY [place], REQUIRES SHOUTING IN EARS TO HEAR. HEARING AIDS PLACED. PT WITH DEMENTIA, REQUIRES REPEATED COMMANDS. NO DISTRESS.
[2020-02-12] MEDS ORDERED: ZITHROMAX250 MG PO (10:08)
--- NOTE | 2020-02-12 12:26 | NUR ---
PT SEEN BY DR GERMAN THIS MORNING, WILL BE DISCHARGED TO HOME WITH HOME HEALTH VISITS. PT'S NUMBER WAS CALLED, MAVIS (DAUGHTER) WILL BE HERE TO TECHNOLOGY CONSULTANT SOON. PT REMOVED FROM MONITORS, IV REMOVED, READIED FOR DISPOSITION. PT REMAINS STABLE, WHEELCHAIR TO BE USED FOR TRANSPORT.
[2020-02-12 12:27] VITALS: BP 119/59
== END 2020-02-12 13:00 ==
LOC: ED 17:07 → ED-I 19:36 → ED 19:51 → ED-I 19:52 → MS2 19:52 → ICU 02-12 07:34
PROVIDERS: Emergency Medicine; ADMIT Internal Medicine; ATTEND Internal Medicine
DX: U07.1 COVID-19 (principal); J12.89 Other viral pneumonia; E11.9 Type 2 diabetes mellitus without complications; I10 Essential (primary) hypertension; F03.90 Unspecified dementia, unspecified severity, without behavioral disturbance, psychotic disturbance, mood disturbance, and anxiety; E03.9 Hypothyroidism, unspecified; K59.00 Constipation, unspecified; H91.90 Unspecified hearing loss, unspecified ear; N40.0 Benign prostatic hyperplasia without lower urinary tract symptoms
CPT/HCPCS: G0378; J1650; Q9967